=== PATIENT | female | born 1965 | race Caucasian/White ===

== ENCOUNTER 2017-01-30 21:54 | Emergency (ER) | payer MEDICAID ==
[~2017-01-30] VITALS: Ht 165.1 cm; Wt 77.0 kg
[~2017-01-30 21:54] MED LIST: ASPI-556 PO
[2017-01-31 00:31] LABS: BASOPHILS # (AUTO) 0.03 K/uL (0.00-0.20); BASOPHILS % (AUTO) 0.3 % (0.0-2.0); EOSINOPHILS # (AUTO) 0.04 K/uL (0.00-0.70); HEMATOCRIT 37.1 % (36-46); HEMOGLOBIN 12.6 g/dL (12.0-16.0); LYMPHOCYTES # (AUTO) 2.1 K/uL (1.0-4.8); MEAN CORPUSCULAR HEMOGLOBIN 29.2 pg (26.0-34.0); MEAN CORPUSCULAR VOLUME 86 fL (80-100); MONOCYTES # (AUTO) 0.5 K/uL (0.1-1.0); MONOCYTES % (AUTO) 5.2 % (2.0-9.0); NEUTROPHILS # (AUTO) 7.2 K/uL (1.8-7.7); PLATELET COUNT (AUTO) 297 K/uL (150-450); RED BLOOD CELL COUNT(AUTO) 4.32 MIL/uL (4.00-5.20); WHITE BLOOD COUNT (AUTO) 9.9 K/uL (4.5-11.0)
[2017-01-31 00:43] LABS: ANION GAP 7 mmol/L (8-16); CALCIUM, TOTAL 9.3 mg/dL (8.8-10.5); CARBON DIOXIDE 29 mmol/L (22-29); CHLORIDE 106 mmol/L (98-107); CREATININE 0.83 mg/dL (0.60-1.30); GLOMERULAR FILTR. RATE CALC > 60 mL/min (>60); POTASSIUM 4.4 mmol/L (3.5-5.1); SODIUM SERUM 142 mmol/L (136-145); UREA NITROGEN, BLOOD 12 mg/dL (7-18)
[2017-01-31 00:49] LABS: ALANINE AMINOTRANSFERASE 30 U/L (12-78); ALBUMIN 3.9 g/dL (3.4-5.0); ASPARTATE AMINOTRANSFERASE 19 U/L (15-37); BILIRUBIN,TOTAL 0.3 mg/dL (0.1-1.0); TOTAL PROTEIN, SERUM 7.8 g/dL (6.4-8.2)
[2017-01-31] MEDS: ASPIRIN 325 MG TABLET PO ONE (01:26)
[2017-01-31] MEDS: MECLIZINE HCL 25 MG TABLET PO ONE (01:26)
[2017-01-31] MEDS: KETOROLAC TROMETHAMINE 60 MG/2 ML VIAL IM ONE (01:29)
[2017-01-31 01:43] VITALS: BP 120/70
== END 2017-01-31 01:58 | disposition home or self-care (01) ==
LOC: EMS 21:55
DX: M62.838 Other muscle spasm (principal); R20.0 Anesthesia of skin; Z86.73 Personal history of transient ischemic attack (TIA), and cerebral infarction without residual deficits
CPT/HCPCS: 29240; 36415; 70450; 80053; 84484; 85025; 93005; 96372; 99285; J1885

== ENCOUNTER 2018-11-20 20:17 | Emergency (ER) | payer SELFPAY ==
[~2018-11-20] VITALS: Ht 154.9 cm; Wt 80.9 kg
[2018-11-20 20:25] VITALS: BP 144/79
[2018-11-20 21:04] LABS: INFLUENZA TYPE B NEGATIVE FOR TYPE B (NEGATIVE)
[2018-11-20 21:05] LABS: INFLUENZA TYPE A POSITIVE FOR TYPE A (NEGATIVE)
[2018-11-20] MEDS ORDERED: KETOROLAC TROMETHAMINE 10 MG TABLET PO ONE (21:15)
[2018-11-20] MEDS ORDERED: METHOCARBAMOL 500 MG TABLET PO ONE (21:15)
== END 2018-11-20 21:31 | disposition home or self-care (01) ==
LOC: EMS 20:18
DX: S20.229A Contusion of unspecified back wall of thorax, initial encounter (principal); J11.1 Influenza due to unidentified influenza virus with other respiratory manifestations; H60.91 Unspecified otitis externa, right ear; W18.39XA Other fall on same level, initial encounter; Y93.E5 Activity, floor mopping and cleaning; Y92.89 Other specified places as the place of occurrence of the external cause; Y99.8 Other external cause status
CPT/HCPCS: 87804

== ENCOUNTER 2018-12-21 10:44 | Inpatient (IN) | payer MEDICAID ==
[2018-12-21] VITALS (18 sets, daily range): BP systolic 111–155; BP diastolic 55–90
[~2018-12-21] VITALS: Ht 172.7 cm; Wt 77.9 kg
[2018-12-21 10:59] LABS: EOSINOPHILS % (AUTO) 0.9 % (1.0-6.0); HEMATOCRIT 43.3 % (36-46); HEMOGLOBIN 14.9 g/dL (12.0-16.0); LYMPHOCYTES # (AUTO) 2.6 K/uL (1.0-4.8); LYMPHOCYTES % (AUTO) 32.1 % (22.0-44.0); MEAN CORPUSCULAR HEMOGLOBIN 29.7 pg (26.0-34.0); MEAN CORPUSCULAR HGB CONC 34.3 G/dL (31.0-37.0); MEAN CORPUSCULAR VOLUME 87 fL (80-100); MONOCYTES # (AUTO) 0.5 K/uL (0.1-1.0); MONOCYTES % (AUTO) 5.7 % (2.0-9.0); NEUTROPHILS # (AUTO) 4.9 K/uL (1.8-7.7); NEUTROPHILS % (AUTO) 60.3 % (40.0-70.0); PLATELET COUNT (AUTO) 352 K/uL (150-450)
[2018-12-21] MEDS ORDERED: IOVERSOL 350 MG/ML 100 ML VIAL ONE (11:06)
[2018-12-21] MEDS ORDERED: SODIUM CHLORIDE 0.9% 100 ML ONE (11:06)
[2018-12-21 11:09] LABS: INR 0.9 (0.9-1.1); PROTHROMBIN TIME 9.6 SEC (9.4-11.6)
[2018-12-21 11:15] LABS: ANION GAP 14 mmol/L (8-16); CALCIUM, TOTAL 9.8 mg/dL (8.8-10.5); CARBON DIOXIDE 25 mmol/L (22-29); CHLORIDE 102 mmol/L (98-107); CREATININE 0.71 mg/dL (0.60-1.30); GLOMERULAR FILTR. RATE CALC > 60 mL/min (>60); GLUCOSE,RANDOM 116 mg/dL (70-110); POTASSIUM 3.9 mmol/L (3.5-5.1); SODIUM SERUM 141 mmol/L (136-145); UREA NITROGEN, BLOOD 13 mg/dL (7-18)
[2018-12-21] MEDS ORDERED: ALTEPLASE PER STROKE PROTOCOL CLINICAL ONE (11:15)
[2018-12-21 11:21] LABS: ALANINE AMINOTRANSFERASE 26 U/L (12-78); ALBUMIN 4.3 g/dL (3.4-5.0); ALKALINE PHOSPHATASE 130 U/L (46-116); ASPARTATE AMINOTRANSFERASE 18 U/L (15-37); BILIRUBIN,TOTAL 0.3 mg/dL (0.1-1.0); TOTAL PROTEIN, SERUM 8.2 g/dL (6.4-8.2)
[2018-12-21] MEDS ORDERED: ALTEPLASE IV ONE ×2 (11:30)
[2018-12-21] MEDS ORDERED: WATER FOR INJECTION STERILE IV ONE ×2 (11:30)
[2018-12-21] MEDS ORDERED: SODIUM CHLORIDE 0.9% 250 ML IV ONE (11:39)
[2018-12-21] MEDS ORDERED: ACETAMINOPHEN 325 MG TABLET PO PRN ×2 (13:15→15:15)
[2018-12-21] MEDS ORDERED: ONDANSETRON HCL 4 MG/2 ML VIAL IVP PRN ×2 (13:15→15:15)
[2018-12-21] MEDS ORDERED: HYDROCODONE/ACETAMINOPHEN 5-325 MG TABLET PO PRN (15:15)
[2018-12-21] MEDS ORDERED: BISACODYL 10 MG RECTAL RECTAL SUPPOSITORY PR PRN (15:15)
[2018-12-21] MEDS ORDERED: MAGNESIUM HYDROXIDE SUSPENSION 30 ML UDCUP PO PRN (15:15)
[2018-12-21] MEDS ORDERED: ZOLPIDEM TARTRATE 5 MG TABLET PO PRN (15:15)
[2018-12-21] MEDS ORDERED: MORPHINE SULFATE 4 MG/ML SYRINGE IVP PRN (15:15)
[2018-12-21] MEDS ORDERED: PNEUMOCOCCAL VACCINE POLYVALENT 0.5 ML VIAL [PPSV23] IM ONE (19:45)
[2018-12-21] MEDS: FAMOTIDINE 20 MG TABLET PO SCH (20:38)
[2018-12-21] MEDS: ATORVASTATIN CALCIUM 20 MG TABLET PO SCH (20:38)
[2018-12-21] MEDS: DOCUSATE SODIUM 100 MG CAPSULE PO SCH (20:38)
[2018-12-21] MEDS ORDERED: ATORVASTATIN CALCIUM 20 MG TABLET PO SCH (21:00)
[2018-12-22] VITALS (20 sets, daily range): BP systolic 104–131; BP diastolic 50–89
[2018-12-22 05:16] LABS: CHOL/HDL RATIO 6.5 (3.9-5.7); THYROID STIMULATING HORMONE 0.9 uIU/mL (0.36-3.74)
[2018-12-22 05:20] LABS: HEMOGLOBIN A1C 6.5 % (4.5-6.2)
[2018-12-22] MEDS: FAMOTIDINE 20 MG TABLET PO SCH ×2 (09:25→20:23)
[2018-12-22] MEDS: DOCUSATE SODIUM 100 MG CAPSULE PO SCH ×2 (09:25→20:23)
[2018-12-22] MEDS: ATORVASTATIN CALCIUM 20 MG TABLET PO SCH (20:23)
[2018-12-23 04:17] VITALS: BP 108/75
[2018-12-23 07:44] VITALS: BP 126/72
[2018-12-23] MEDS: FAMOTIDINE 20 MG TABLET PO SCH (08:48)
[2018-12-23] MEDS: DOCUSATE SODIUM 100 MG CAPSULE PO SCH (08:48)
[2018-12-23] MEDS ORDERED: ASPIRIN 81 MG EC TABLET PO SCH (09:00)
[2018-12-23 11:33] VITALS: BP 122/72
[2018-12-23] MEDS ORDERED: ASPI81TA39 PO (13:05)
[2018-12-23] MEDS ORDERED: ATOR20TA86 PO (13:08)
== END 2018-12-23 14:50 | disposition home or self-care (01) | DRG 45 ==
LOC: EMS 10:45 → ICU 14:22 → 5S 12-22 16:05
PROVIDERS: ADMIT Internal Medicine; ATTEND Internal Medicine
DX: I63.9 Cerebral infarction, unspecified (principal); Z28.21 Immunization not carried out because of patient refusal; Z82.3 Family history of stroke
CPT/HCPCS: 37195; 70496; 70551; 82607; 83036; 84443; 87081; 92523; 93005; 93306; 93880; 97116; 97162; 99291; G0378; J2997; J7050

== ENCOUNTER 2020-12-09 13:24 | Emergency (ER) | payer MEDICAID, OTHER ==
[~2020-12-09] VITALS: Ht 165.1 cm; Wt 71.6 kg
[~2020-12-09 13:24] MED LIST changes: -ASPI-556 PO; +ASPI81TA39 PO; +ATOR20TA86 PO
[2020-12-09] MEDS ORDERED: ONDANSETRON HCL 4 MG/2 ML VIAL IVP ONE (14:00)
[2020-12-09] MEDS ORDERED: ACETAMINOPHEN 500 MG TABLET PO ONE (14:00)
[2020-12-09] MEDS ORDERED: MECLIZINE HCL 25 MG TABLET PO ONE (14:00)
[2020-12-09 14:32] LABS: BASOPHILS % (AUTO) 0.4 % (0.0-2.0); EOSINOPHILS % (AUTO) 0.2 % (1.0-6.0); HEMATOCRIT 40.3 % (36-46); HEMOGLOBIN 13.3 g/dL (12.0-16.0); LYMPHOCYTES % (AUTO) 16.6 % (22.0-44.0); MEAN CORPUSCULAR HEMOGLOBIN 28.9 pg (26.0-34.0); MEAN CORPUSCULAR VOLUME 88 fL (80-100); MONOCYTES # (AUTO) 0.3 K/uL (0.1-1.0); MONOCYTES % (AUTO) 5.7 % (2.0-9.0); NEUTROPHILS # (AUTO) 4.6 K/uL (1.8-7.7); NEUTROPHILS % (AUTO) 77.1 % (40.0-70.0); PLATELET COUNT (AUTO) 249 K/uL (150-450); RED CELL DISTRIBUTION WIDTH 12.8 % (11.5-14.5)
[2020-12-09 14:40] LABS: ANION GAP 7 mmol/L (8-16); CALCIUM, TOTAL 9.2 mg/dL (8.8-10.5); CARBON DIOXIDE 28 mmol/L (22-29); CHLORIDE 104 mmol/L (98-107); CREATININE 0.72 mg/dL (0.60-1.30); GLOMERULAR FILTR. RATE CALC > 60 mL/min (>60); GLUCOSE,RANDOM 111 mg/dL (70-110); POTASSIUM 3.8 mmol/L (3.5-5.1); SODIUM SERUM 139 mmol/L (136-145); UREA NITROGEN, BLOOD 15 mg/dL (7-18)
[2020-12-09 14:46] LABS: ALANINE AMINOTRANSFERASE 29 U/L (12-78); ALBUMIN 3.9 g/dL (3.4-5.0); ALKALINE PHOSPHATASE 103 U/L (46-116); ASPARTATE AMINOTRANSFERASE 21 U/L (15-37); BILIRUBIN,TOTAL 0.3 mg/dL (0.1-1.0); TOTAL PROTEIN, SERUM 8.2 g/dL (6.4-8.2)
[2020-12-09 15:40] VITALS: BP 132/79
== END 2020-12-09 15:46 | disposition home or self-care (01) ==
LOC: EMS 13:45
DX: R42 Dizziness and giddiness (principal)
CPT/HCPCS: 70450; 71045; 80053; 82962; 84484; 85025; 93005; 96374; 99291; G0480; J2405